=== PATIENT | male | born 1990 | race African-American/Black ===

== ENCOUNTER 2016-12-30 20:22 | Emergency (ER) | payer OTHER ==
[~2016-12-30] VITALS: Ht 180.3 cm; Wt 71.7 kg
[2016-12-30] MEDS ORDERED: KETOROLAC 30 MG/ML VIAL (J1885) IV ONE (21:00)
[2016-12-30] MEDS ORDERED: NS 1,000 ML IV ONE (21:00)
[2016-12-30] MEDS ORDERED: ONDANSETRON 4MG/2ML VIAL (J2405) IV ONE (21:00)
[2016-12-30 21:19] LABS: BASO % 0.2 % (0.0-1.0); EOS # 0.2 K/mm3 (0.0-0.50); EOS % 1.9 % (0.0-3.0); LARGE UNSTAINED CELL # 0.1 K/mm3 (0.0-0.4); LARGE UNSTAINED CELL % 1.4 % (0.0-4.0); LYMPH # 1.4 K/mm3 (1.5-6.5); LYMPH % 14.1 % (24.0-44.0); MEAN CORPUSCULAR HEMOGLOBIN 27.3 pg (27.0-33.0); MEAN CORPUSCULAR HGB CONC 32.5 g/dl (32.0-36.5); MEAN CORPUSCULAR VOLUME 83.9 fl (80.0-96.0); MONO # 0.3 K/mm3 (0.0-0.8); MONO % 3.6 % (0.0-5.0); NEUTROPHILS % 78.7 % (36.0-66.0); PLATELET COUNT, AUTOMATED 186 k/mm3 (150-450); WHITE BLOOD COUNT 8.9 K/mm3 (4.0-10.0)
[2016-12-30 21:37] LABS: ALBUMIN/GLOBULIN RATIO 1.21 (1.00-1.93); ALKALINE PHOSPHATASE 70 U/L (45-117); ALT/SGPT 18 U/L (12-78); ANION GAP 8 MEQ/L (8-16); AST/SGOT 13 U/L (15-37); BILIRUBIN,DIRECT < 0.1 MG/DL (0.0-0.2); BILIRUBIN,TOTAL 0.4 MG/DL (0.2-1.0); BLOOD UREA NITROGEN 13 MG/DL (7-18); CALCIUM LEVEL 8.5 MG/DL (8.5-10.1); CARBON DIOXIDE LEVEL 25 MEQ/L (21-32); CHLORIDE LEVEL 105 MEQ/L (98-107); CREATININE FOR GFR 1.13 MG/DL (0.70-1.30); GLOMERULAR FILTRATION RATE > 60.0 (>60); GLUCOSE, FASTING 107 MG/DL (70-105); POTASSIUM SERUM 3.5 MEQ/L (3.5-5.1); SODIUM LEVEL 138 MEQ/L (136-145); TOTAL PROTEIN 7.3 GM/DL (6.4-8.2)
--- NOTE | 2016-12-30 22:20 | REPUSA ---
CT of the abdomen and pelvis without contrast Clinical statement: Pain. Technique: Multiple axial CT images were obtained from the base of the lungs to the floor of the pelv is utilizing 5 mm axial slices without administration of contrast. Coronal and sagittal reconstructio ns were also obtained. Comparison: 06/05/2016. Findings: Chest: The visualized lung bases are clear. Abdomen: The kidneys are normal in size bilaterally. There is no evidence of hydronephrosis or nephro lithiasis. The liver, spleen, pancreas, gallbladder and adrenal glands are unremarkable. The aorta de monstrates normal caliber and contour. There is no abdominal lymphadenopathy or ascites. Pelvis: The bowel is unremarkable, with no obstructive or inflammatory changes.. The appendix is not clearly identified. However, no secondary inflammatory changes are appreciated in the right lower jessica drant. The urinary bladder is within normal limits. There is no pelvic lymphadenopathy or ascites. Th e other pelvic structures appear unremarkable. Bones: There are no suspicious osseous abnormalities seen. Impression: Unremarkable CT examination of the abdomen and pelvis. No obstructive or inflammatory bow el changes. No evidence of hydronephrosis or nephrolithiasis.
[2016-12-30] MEDS ORDERED: ZOFR4TAB3 PO (22:44)
[2016-12-30 23:01] VITALS: BP 108/61
[2016-12-31] MEDS ORDERED: BENT10CA PO (09:25)
== END 2016-12-30 23:04 | disposition home or self-care (01) ==
LOC: M ED 21:00
DX: K29.70 Gastritis, unspecified, without bleeding (principal); F17.210 Nicotine dependence, cigarettes, uncomplicated
CPT/HCPCS: 36415; 74176; 80048; 80076; 81001; 83690; 85025; 87086; 96361; 96374; 96375; 99283; J1885; J2405

== ENCOUNTER 2016-12-31 03:08 | Emergency (ER) | payer OTHER ==
[~2016-12-31 03:08] MED LIST: ZOFR4TAB3 PO
[2016-12-31] MEDS ORDERED: ONDANSETRON 4MG/2ML VIAL (J2405) As Ordered ONE (04:24)
[2016-12-31] MEDS ORDERED: MORPHINE 4 MG/ML 1ML SYRINGE As Ordered ONE (04:24)
[2016-12-31 05:01] LABS: BASO % 0.1 % (0.0-1.0); EOS # 0.1 K/mm3 (0.0-0.50); EOS % 0.5 % (0.0-3.0); LARGE UNSTAINED CELL # 0.1 K/mm3 (0.0-0.4); LYMPH # 0.6 K/mm3 (1.5-6.5); LYMPH % 5.2 % (24.0-44.0); MEAN CORPUSCULAR HEMOGLOBIN 30.1 pg (27.0-33.0); MEAN CORPUSCULAR HGB CONC 35.6 g/dl (32.0-36.5); MEAN CORPUSCULAR VOLUME 84.4 fl (80.0-96.0); MONO # 0.4 K/mm3 (0.0-0.8); MONO % 3.3 % (0.0-5.0); NEUTROPHILS # 9.6 K/mm3 (1.8-7.7); NEUTROPHILS % 89.8 % (36.0-66.0); PLATELET COUNT, AUTOMATED 186 k/mm3 (150-450); WHITE BLOOD COUNT 10.7 K/mm3 (4.0-10.0)
[2016-12-31 05:21] LABS: BLOOD UREA NITROGEN 13 MG/DL (7-18); CREATININE FOR GFR 1.15 MG/DL (0.70-1.30); GLUCOSE, FASTING 102 MG/DL (70-105)
[2016-12-31 05:22] LABS: ALBUMIN 3.8 GM/DL (3.2-5.2); ALBUMIN/GLOBULIN RATIO 1.23 (1.00-1.93); ALKALINE PHOSPHATASE 72 U/L (45-117); ALT/SGPT 18 U/L (12-78); ANION GAP 8 MEQ/L (8-16); AST/SGOT 11 U/L (15-37); BILIRUBIN,DIRECT 0.1 MG/DL (0.0-0.2); BILIRUBIN,TOTAL 0.6 MG/DL (0.2-1.0); CALCIUM LEVEL 8.3 MG/DL (8.5-10.1); CARBON DIOXIDE LEVEL 26 MEQ/L (21-32); CHLORIDE LEVEL 106 MEQ/L (98-107); GLOMERULAR FILTRATION RATE > 60.0 (>60); POTASSIUM SERUM 3.9 MEQ/L (3.5-5.1); SODIUM LEVEL 140 MEQ/L (136-145); TOTAL PROTEIN 6.9 GM/DL (6.4-8.2)
[2016-12-31] MEDS ORDERED: GASTROGRAFIN SOLUTION 30ML (Q9963) As Ordered ONE (06:21)
[2016-12-31] MEDS ORDERED: ISOVUE-370 76% 100ML VIAL (Q9967) As Ordered ONE (07:54)
[2016-12-31] MEDS ORDERED: BENT10CA PO (09:25)
--- NOTE | 2016-12-31 09:33 | REP ---
CT ABDOMEN AND PELVIS WITH CONTRAST: TECHNIQUE: Axial contrast enhanced images from the lung bases to the pubic symphysis using 100 mL Isovue 370 intravenous contrast material with multiplanar reformations. Visualized lung bases are clear. Liver, spleen, adrenals, pancreas and kidneys are normal in appearance. There is no hydronephrosis. There is no abdominal aortic aneurysm. No bowel wall thickening is seen. Delayed images through the pelvis are performed showing small amount of air and contrast in the appendix, with no evidence for appendicitis. No pelvic mass is seen. Urinary bladder appears unremarkable. IMPRESSION: Essentially negative CT abdomen and pelvis with IV and oral contrast. No evidence for appendicitis. No free air or free fluid. Signed by Lalo Nair MD 01/01/2017 04:39 P
--- NOTE | 2016-12-31 12:14 | ED PDOC ---
Post-Departure Follow-Up This record was completed partially or completely on paper due to EMR downtime. Please see scanned paper chart. Lea Goode MD Dec 31, 2016 12:14
== END 2016-12-31 09:59 | disposition home or self-care (01) ==
LOC: M ED 03:35
DX: R10.9 Unspecified abdominal pain (principal); G89.29 Other chronic pain
CPT/HCPCS: 74177; 80048; 80076; 83690; 85025; 96374; 96375; 99281; J2405; Q9963; Q9967

== ENCOUNTER 2017-01-26 21:08 | Emergency (ER) | payer OTHER ==
[~2017-01-26] VITALS: Ht 180.3 cm; Wt 86.2 kg
[~2017-01-26 21:08] MED LIST changes: +BENT10CA PO
[2017-01-26 21:09] VITALS: BP 140/83
== END 2017-01-26 22:25 | disposition left against medical advice (07) ==
LOC: M ED 22:25
DX: Z53.29 Procedure and treatment not carried out because of patient's decision for other reasons (principal)

== ENCOUNTER 2017-06-05 01:38 | Emergency (ER) | payer OTHER ==
[~2017-06-05] VITALS: Ht 188 cm; Wt 72.0 kg
[2017-06-05] MEDS ORDERED: cefTRIAXone SOD 250 MG VIAL (J0696) IM ONE (05:00)
[2017-06-05] MEDS ORDERED: DOXYCYCLINE HYCLATE 100 MG TAB PO ONE (05:00)
[2017-06-05] MEDS ORDERED: DOXY100C37 PO (05:01)
[2017-06-05 05:37] VITALS: BP 119/81
== END 2017-06-05 05:38 | disposition home or self-care (01) ==
LOC: M ED 01:38
DX: N41.0 Acute prostatitis (principal)
CPT/HCPCS: 81001; 87086; 87491; 87591; 96372; 99282; J0696

== ENCOUNTER 2017-08-24 09:58 | Emergency (ER) | payer OTHER ==
[~2017-08-24] VITALS: Ht 180.3 cm; Wt 71.8 kg
[~2017-08-24 09:58] MED LIST changes: +DOXY100C37 PO
[2017-08-24] MEDS ORDERED: NAPR500T3 (10:06)
[2017-08-24] MEDS ORDERED: ACETAMINOPHEN 325 MG TAB PO ONE (10:45)
--- NOTE | 2017-08-24 10:56 | REP ---
Head CT without contrast: History: Headache after trauma Comparison study: No comparison study. CT findings: Bone window settings demonstrate an intact bony calvarium. There is no evidence of skull fracture or incidental bony calvarial lesion. The visualized paranasal sinuses appear clear. No intraorbital abnormality is seen. On soft tissue window setting images; the lateral, third, and fourth ventricles are normal in size and position. Nair-white differentiation pattern is normal above and below the tentorium. There are is no evidence of intracranial hemorrhage. No mass, edema, infarction, or midline shift is seen. No extra-axial fluid collection is appreciated. Impression: Negative noncontrast head CT. Signed by Ever Cuba MD 08/24/2017 10:48 A
[2017-08-24 11:24] VITALS: BP 148/83
== END 2017-08-24 11:26 | disposition home or self-care (01) ==
LOC: M ED 09:58
DX: G44.209 Tension-type headache, unspecified, not intractable (principal); Z72.0 Tobacco use

== ENCOUNTER 2017-11-06 08:21 | Emergency (ER) | payer OTHER | END 2017-11-06 10:14 | disposition home or self-care (01) | LOC: M ED 08:21 | DX: Z04.1 Encounter for examination and observation following transport accident (principal); S80.02XA Contusion of left knee, initial encounter; V47.5XXA Car driver injured in collision with fixed or stationary object in traffic accident, initial encounter; Y92.410 Unspecified street and highway as the place of occurrence of the external cause; F17.210 Nicotine dependence, cigarettes, uncomplicated; Z98.890 Other specified postprocedural states | CPT/HCPCS: 73564 ==

== ENCOUNTER 2017-12-11 23:45 | Emergency (ER) | payer OTHER ==
[2017-12-12 05:41] LABS: HEMATOCRIT 41.7 % (42.0-52.0); MEAN CORPUSCULAR HEMOGLOBIN 27.7 pg (27.0-33.0); MEAN CORPUSCULAR HGB CONC 33.6 g/dl (32.0-36.5); MEAN CORPUSCULAR VOLUME 82.4 fl (80.0-96.0); PLATELET COUNT, AUTOMATED 242 10^3/uL (150-450); RED BLOOD COUNT 5.06 10^6/uL (4.30-6.10); RED CELL DISTRIBUTION WIDTH 14.8 % (11.5-14.5); WHITE BLOOD COUNT 8.2 10^3/uL (4.0-10.0)
[2017-12-12 06:26] LABS: BLOOD UREA NITROGEN 9 MG/DL (7-18); CHLORIDE LEVEL 109 MEQ/L (98-107); CREATININE FOR GFR 1.07 MG/DL (0.70-1.30); GLOMERULAR FILTRATION RATE > 60.0 (>60); GLUCOSE, FASTING 115 MG/DL (70-100); POTASSIUM SERUM 3.7 MEQ/L (3.5-5.1); SODIUM LEVEL 145 MEQ/L (136-145)
[2017-12-12 06:27] LABS: ALKALINE PHOSPHATASE 87 U/L (45-117); ALT/SGPT 14 U/L (12-78); ANION GAP 6 MEQ/L (8-16); AST/SGOT 11 U/L (7-37); CALCIUM LEVEL 8.4 MG/DL (8.5-10.1); CARBON DIOXIDE LEVEL 30 MEQ/L (21-32)
[2017-12-12 06:28] LABS: ACETAMINOPHEN LEVEL < 2.0 UG/ML (10.0-30.0); ALBUMIN 3.8 GM/DL (3.2-5.2); ALBUMIN/GLOBULIN RATIO 1.31 (1.00-1.93); AMPHETAMINES LEVEL URINE NEGATIVE (NEGATIVE); BARBITURATES URINE NEGATIVE (NEGATIVE); BENZODIAZEPINES URINE NEGATIVE (NEGATIVE); BILIRUBIN,DIRECT < 0.1 MG/DL (0.0-0.2); BILIRUBIN,TOTAL 0.2 MG/DL (0.2-1.0); CANNABINOIDS URINE NEGATIVE (NEGATIVE); COCAINE METABOLITE URINE NEGATIVE (NEGATIVE); ETHYL ALCOHOL (ETHANOL) < 0.003 % (0.000-0.010); METHADONE URINE NEGATIVE (NEGATIVE); OPIATES URINE NEGATIVE (NEGATIVE); SALICYLATE LEVEL 3.4 MG/DL (5.0-30.0); TOTAL PROTEIN 6.7 GM/DL (6.4-8.2)
[2017-12-12 06:29] LABS: PHENCYCLIDINE URINE NEGATIVE (NEGATIVE)
== END 2017-12-12 06:01 | disposition home or self-care (01) ==
LOC: M ED 23:45
DX: G47.00 Insomnia, unspecified (principal); G47.52 REM sleep behavior disorder; F17.210 Nicotine dependence, cigarettes, uncomplicated
CPT/HCPCS: 70450

== ENCOUNTER 2018-01-15 06:12 | Emergency (ER) | payer OTHER ==
[2018-01-15] MEDS: KETOROLAC 30 MG/ML VIAL (J1885) IV (06:45)
[2018-01-15] MEDS: ONDANSETRON 4MG/2ML VIAL (J2405) IV (06:45)
[2018-01-15] MEDS: NS 1,000 ML IV (07:56)
[2018-01-15 08:01] LABS: BASO % 0.6 % (0.0-1.0); EOS # 0.2 10^3/uL (0.0-0.50); HEMATOCRIT 47.9 % (42.0-52.0); HEMOGLOBIN 15.9 g/dl (13.5-17.5); IMMATURE GRANULOCYTE % 0.2 % (0-3.0); LYMPH # 2.3 10^3/uL (1.5-6.5); LYMPH % 45.6 % (24.0-44.0); MEAN CORPUSCULAR HEMOGLOBIN 27.3 pg (27.0-33.0); MEAN CORPUSCULAR HGB CONC 33.2 g/dl (32.0-36.5); MEAN CORPUSCULAR VOLUME 82.3 fl (80.0-96.0); MONO # 0.4 10^3/uL (0.0-0.8); NEUTROPHILS # 2.2 10^3/uL (1.8-7.7); NEUTROPHILS % 43.6 % (36.0-66.0); PLATELET COUNT, AUTOMATED 217 10^3/uL (150-450); RED BLOOD COUNT 5.82 10^6/uL (4.30-6.10); RED CELL DISTRIBUTION WIDTH 14.4 % (11.5-14.5)
[2018-01-15 08:04] LABS: KETONE, URINE AUTO RFX TRACE mg/dL (NEGATIVE); MUCUS, URINE RFX SMALL (NEGATIVE); NITRITE, URINE AUTO RFX NEGATIVE (NEGATIVE); RBC, URINE AUTO RFX 4 /HPF (0-3); SPECIFIC GRAVITY UR AUTO RFX 1.029 (1.002-1.035); SQUAM EPITHELIAL CELL UR AURFX 0 /HPF (0-6)
[2018-01-15 08:05] LABS: LEUKOCYTE ESTERASE UR AUTO RFX TRACE (NEGATIVE); WBC, URINE AUTO RFX 12 /HPF (0-3)
[2018-01-15 08:16] LABS: ALBUMIN/GLOBULIN RATIO 1.05 (1.00-1.93); ALKALINE PHOSPHATASE 82 U/L (45-117); ALT/SGPT 20 U/L (12-78); ANION GAP 3 MEQ/L (8-16); AST/SGOT 13 U/L (7-37); BILIRUBIN,DIRECT 0.1 MG/DL (0.0-0.2); BILIRUBIN,TOTAL 0.5 MG/DL (0.2-1.0); BLOOD UREA NITROGEN 12 MG/DL (7-18); CARBON DIOXIDE LEVEL 30 MEQ/L (21-32); CHLORIDE LEVEL 107 MEQ/L (98-107); CREATININE FOR GFR 1.15 MG/DL (0.70-1.30); GLOMERULAR FILTRATION RATE > 60.0 (>60); GLUCOSE, FASTING 84 MG/DL (70-100); LIPASE 198 U/L (73-393); POTASSIUM SERUM 4.2 MEQ/L (3.5-5.1); SODIUM LEVEL 140 MEQ/L (136-145); TOTAL PROTEIN 7.8 GM/DL (6.4-8.2)
== END 2018-01-15 08:50 | disposition home or self-care (01) ==
LOC: M ED 06:12
DX: R10.30 Lower abdominal pain, unspecified (principal); R11.2 Nausea with vomiting, unspecified; M54.89 Other dorsalgia; G89.29 Other chronic pain; M25.562 Pain in left knee; F32.9 Major depressive disorder, single episode, unspecified; F17.200 Nicotine dependence, unspecified, uncomplicated
CPT/HCPCS: J2405

== ENCOUNTER → 2018-04-19 | Outpatient (REF) | payer OTHER ==
[2018-04-19 12:39] LABS: APPEARANCE, URINE CLEAR (CLEAR); BACTERIA, URINE AUTO NEGATIVE (NEGATIVE); BILIRUBIN, URINE AUTO NEGATIVE (NEGATIVE); BLOOD, URINE BLOOD NEGATIVE (NEGATIVE); COLOR, URINE STRAW (YELLOW); GLUCOSE, URINE (UA) AUTO NEGATIVE (NEGATIVE); KETONE, URINE AUTO NEGATIVE (NEGATIVE); LEUKOCYTE ESTERASE, URINE AUTO NEGATIVE (NEGATIVE); NITRITE, URINE AUTO NEGATIVE (NEGATIVE); PROTEIN, URINE AUTO NEGATIVE (NEGATIVE); RBC, URINE AUTO 0 /HPF (0-3); SPECIFIC GRAVITY URINE AUTO 1.008 (1.002-1.035); SQUAMOUS EPITHELIAL CELL UR AU 0 /HPF (0-6); UROBILINOGEN, URINE AUTO 0.2 mg/dL (0.0-2.0); WBC, URINE AUTO 0 /HPF (0-3)
== END ==
LOC: M SMT 12:03
DX: N46.9 Male infertility, unspecified (principal)

== ENCOUNTER → 2018-04-22 | Outpatient (CLI) | payer OTHER | LOC: M RAD 10:33 | DX: I86.1 Scrotal varices (principal); N43.3 Hydrocele, unspecified; N46.9 Male infertility, unspecified | CPT/HCPCS: 76870 ==

== ENCOUNTER 2018-05-11 16:54 | Emergency (ER) | payer OTHER | END 2018-05-11 18:51 | disposition left against medical advice (07) | LOC: M ED 16:54 | DX: Z53.29 Procedure and treatment not carried out because of patient's decision for other reasons (principal) ==

== ENCOUNTER 2018-12-31 05:49 | Emergency (ER) | payer OTHER ==
[~2018-12-31] VITALS: Ht 180.3 cm; Wt 78.4 kg
[~2018-12-31 05:49] MED LIST changes: +ADVITAB PO; +NAPR-885; +ZOFR4TAB14 PO; -ZOFR4TAB3 PO
[2018-12-31 05:50] VITALS: BP 138/84
[2018-12-31] MEDS ORDERED: NAPR500T6 PO ×2 (06:34→07:23)
[2018-12-31] MEDS ORDERED: CYCL10TA PO ×2 (06:34→07:22)
== END 2018-12-31 07:21 | disposition home or self-care (01) ==
LOC: M ED 05:49
DX: G89.29 Other chronic pain (principal); M54.9 Dorsalgia, unspecified; F41.9 Anxiety disorder, unspecified; F32.9 Major depressive disorder, single episode, unspecified

== ENCOUNTER 2019-04-20 17:06 | Emergency (ER) | payer OTHER ==
[~2019-04-20] VITALS: Ht 180.3 cm; Wt 77.9 kg
[~2019-04-20 17:06] MED LIST changes: +CYCL10TA PO; +NAPR500T6 PO
[2019-04-20] MEDS ORDERED: DOME8.5P (17:13)
[2019-04-20] MEDS ORDERED: KETOROLAC 60 MG/2 ML VIAL (J1885) IM ONE (20:00)
[2019-04-20 20:35] VITALS: BP 129/87
[2019-04-20] MEDS ORDERED: KETO10TAB PO (20:44)
[2019-04-20] MEDS ORDERED: CYCL10TA PO (20:44)
[2019-04-20] MEDS ORDERED: CYCLOBENZAPRINE 10 MG TAB PO ONE (21:00)
== END 2019-04-20 20:58 | disposition home or self-care (01) ==
LOC: M ED 17:06
DX: S29.012A Strain of muscle and tendon of back wall of thorax, initial encounter (principal); M62.830 Muscle spasm of back; M54.2 Cervicalgia; X50.0XXA Overexertion from strenuous movement or load, initial encounter; Y92.138 Other place on military base as the place of occurrence of the external cause; Y99.1 Military activity; Z79.899 Other long term (current) drug therapy; Z79.1 Long term (current) use of non-steroidal anti-inflammatories (NSAID)
CPT/HCPCS: 96372; 99283; J1885